=== PATIENT | female | born 1990 | race African-American/Black ===

== ENCOUNTER 2019-04-17 13:50 | Observation (INO) | payer MEDICAID, OTHER ==
[~2019-04-17] VITALS: Ht 154.9 cm; Wt 65.8 kg
[2019-04-17 13:59] VITALS: BP 145/71
[2019-04-17 15:08] LABS: Urine Bacteria FEW /hpf (None Seen); Urine Blood Negative /uL (Negative); Urine Specific Gravity 1.013 (1.001-1.035); Urine WBC 20 /hpf (0 - 5)
[2019-04-17 15:24] LABS: Alcohol, Urine < 3.0 mg/dL (0-5); Amphetamine Screen, Urine NEGATIVE (NEGATIVE); Barbiturate Scree,Urine NEGATIVE (NEGATIVE); Benzodiazephine Screen, Urine NEGATIVE (NEGATIVE); Cannabinoid Screen, Urine NEGATIVE (NEGATIVE); Cocaine Screen, Urine NEGATIVE (NEGATIVE); Opiate Scree,Urine NEGATIVE (NEGATIVE); Phencyclidine Screen, Urine NEGATIVE (NEGATIVE)
== END 2019-04-17 15:25 | disposition home or self-care (01) | DRG 566 ==
LOC: ER 13:50 → LDRP 14:00 → ER 14:06
PROVIDERS: ADMIT Obstetrics & Gynecology; ATTEND Obstetrics & Gynecology
DX: O62.9 Abnormality of forces of labor, unspecified (principal); Z3A.38 38 weeks gestation of pregnancy
CPT/HCPCS: 59025; 80307; 81001; 81002; 99284; G0378